=== PATIENT | male | born 1990 | race Caucasian/White ===

== ENCOUNTER 2019-06-17 08:32 | Emergency (ER) | payer OTHER ==
[~2019-06-17] VITALS: Ht 180.3 cm; Wt 85.5 kg
[2019-06-17 10:04] VITALS: BP 139/90
[2019-06-17] MEDS ORDERED: AMOX500C PO (10:04)
== END 2019-06-17 10:18 | disposition home or self-care (01) ==
LOC: M ED 08:32
DX: J01.20 Acute ethmoidal sinusitis, unspecified (principal); Z20.9 Contact with and (suspected) exposure to unspecified communicable disease